=== PATIENT | female | born 1960 | race Caucasian/White ===

== ENCOUNTER 2021-08-19 01:54 | Inpatient (IN) | payer OTHER ==
[~2021-08-19] VITALS: Ht 154.9 cm; Wt 72.7 kg
[2021-08-19] MEDS ORDERED: SUBOXONE 8 MG-1 EACH SL (10:56)
[2021-08-19] MEDS ORDERED: LEVOFLOXACIN750 MG PO (11:05)
[2021-08-19] MEDS ORDERED: IPRAT-ALBUT 0.5-3 ML INH (11:05)
[2021-08-19 13:05] LABS: HEMOGLOBIN 12.8 gm/dl (12.3-15.3); RED BLOOD COUNT 4.39 M/UL (4.00-5.10); WHITE BLOOD COUNT 9.8 K/UL (4.5-11.0)
[2021-08-20 05:37] LABS: HEMOGLOBIN 14.2 gm/dl (12.3-15.3); RED BLOOD COUNT 4.74 M/UL (4.00-5.10)
[2021-08-20 05:41] LABS: WHITE BLOOD COUNT 13.1 K/UL (4.5-11.0)
[2021-08-21 02:28] LABS: WHITE BLOOD COUNT 10.7 K/UL (4.5-11.0)
[2021-08-21 03:06] LABS: HEMOGLOBIN 11.2 gm/dl (12.3-15.3); RED BLOOD COUNT 3.82 M/UL (4.00-5.10)
[2021-08-22 04:19] LABS: HEMOGLOBIN 11.1 gm/dl (12.3-15.3); RED BLOOD COUNT 3.83 M/UL (4.00-5.10); WHITE BLOOD COUNT 9.5 K/UL (4.5-11.0)
[2021-08-23 03:15] LABS: HEMOGLOBIN 11.6 gm/dl (12.3-15.3); RED BLOOD COUNT 3.94 M/UL (4.00-5.10); WHITE BLOOD COUNT 10.6 K/UL (4.5-11.0)
[2021-08-25 03:30] LABS: HEMOGLOBIN 11.7 gm/dl (12.3-15.3); RED BLOOD COUNT 3.99 M/UL (4.00-5.10); WHITE BLOOD COUNT 11.5 K/UL (4.5-11.0)
[2021-08-25] MEDS ORDERED: ATENOLOL25 MG PO (12:09)
[2021-08-25] MEDS ORDERED: BRILINTA 90 MG90 MG PO (12:09)
[2021-08-25] MEDS ORDERED: NICOTINE PATCH1 EAC2 TOP (12:09)
[2021-08-25] MEDS ORDERED: CRESTOR 10 MG T10 MG PO (12:09)
[2021-08-25] MEDS ORDERED: ISOSORBIDE MONO60 MG PO (12:09)
[2021-08-25] MEDS ORDERED: ASPIRIN EC81 MG PO (12:09)
[2021-08-25] MEDS ORDERED: SYMBICORT 80-41 INHA INH (12:09)
== END 2021-08-25 17:00 | disposition home or self-care (01) | DRG 189 ==
LOC: PROG CARE 01:54
PROVIDERS: Internal Medicine; Physician Assistant Medical; ADMIT Internal Medicine
PROC: B24BZZZ Ultrasonography of Heart with Aorta (ICD-10-PCS; principal; 2021-08-19)
PROC: 4A023N7 Measurement of Cardiac Sampling and Pressure, Left Heart, Percutaneous Approach (ICD-10-PCS; 2021-08-24)
PROC: B2111ZZ Fluoroscopy of Multiple Coronary Arteries using Low Osmolar Contrast (ICD-10-PCS; 2021-08-24)
DX: J96.01 Acute respiratory failure with hypoxia (principal); I21.A1 Myocardial infarction type 2; J44.1 Chronic obstructive pulmonary disease with (acute) exacerbation; Z20.822 Contact with and (suspected) exposure to COVID-19; N17.9 Acute kidney failure, unspecified; F11.20 Opioid dependence, uncomplicated; I25.10 Atherosclerotic heart disease of native coronary artery without angina pectoris; F17.210 Nicotine dependence, cigarettes, uncomplicated; E78.5 Hyperlipidemia, unspecified; T38.0X5A Adverse effect of glucocorticoids and synthetic analogues, initial encounter; J96.02 Acute respiratory failure with hypercapnia; F12.10 Cannabis abuse, uncomplicated; I45.81 Long QT syndrome; I10 Essential (primary) hypertension; G89.29 Other chronic pain; J02.9 Acute pharyngitis, unspecified; Z95.5 Presence of coronary angioplasty implant and graft; Z98.891 History of uterine scar from previous surgery; Z90.710 Acquired absence of both cervix and uterus; Z88.8 Allergy status to other drugs, medicaments and biological substances; Z82.49 Family history of ischemic heart disease and other diseases of the circulatory system; Z84.89 Family history of other specified conditions; Z80.1 Family history of malignant neoplasm of trachea, bronchus and lung; Z91.14 Patient's other noncompliance with medication regimen; Z98.818 Other dental procedure status; Z28.310 Unvaccinated for COVID-19
CPT/HCPCS: ECHO; 36415; 71045; 78452; 80048; 80053; 82550; 82553; 83735; 84484; 85027; 85347; 85379; 85730; 93005; 93017; 93306; 93571; 93931; 94640; 94664; 94760; 99152; 99153; A9502; C1769; C1887; C1894; J0360; J1644; J1650; J1956; J2250; J2785; J2920; J2930; J3010; Q9965